=== PATIENT | male | born 1965 | race Caucasian/White ===

== ENCOUNTER 2020-04-22 10:07 | Day surgery (SDC) | payer OTHER ==
[~2020-04-22 10:07] MED LIST: DIPRIVAN 200 MG/20 ML IV ONE; Ketamine HCl 50 MG/ML ONE; Versed 2 MG/2 ML Injection ONE
[2020-04-22] MEDS ORDERED: Sodium Chloride 0.9(Preservative Free) 10 ML IJ ONE (10:08)
[2020-04-22] MEDS ORDERED: Xylocaine 1% Vial 30 ML PF IJ ONE (10:08)
[2020-04-22] MEDS ORDERED: Lactated Ringers 1,000 ML IV ONE (10:08)
[2020-04-22] MEDS ORDERED: Depo-Medrol 40 MG/ML IM ONE (10:08)
--- NOTE | 2020-04-22 13:14 | XRAY ---
Indication: Lumbar BARBARA. Intraoperative fluoroscopy was provided for 18 seconds. 2 digital spot images submitted for interpretation demonstrates midline posterior needle tip just posterior to the lumbosacral interspace. Correlate with intraoperative findings/report.
--- NOTE | 2020-04-22 13:26 | XRAY ---
18 seconds fluoroscopy time in surgery for lumbar BARBARA.
== END 2020-04-22 12:08 | disposition home or self-care (01) ==
LOC: SDC-PAIN 10:07
PROVIDERS: ATTEND Psychiatry & Neurology Pain Medicine
DX: M54.16 Radiculopathy, lumbar region (principal); I10 Essential (primary) hypertension; J44.9 Chronic obstructive pulmonary disease, unspecified; M10.9 Gout, unspecified; Z79.899 Other long term (current) drug therapy
CPT/HCPCS: 62321; 72100; 77003; J1030; J2001; J2250; J2704; Q9966

== ENCOUNTER 2020-07-08 14:46 | Day surgery (SDC) | payer OTHER ==
[2020-07-08] MEDS ORDERED: LIDOCAINE HCL 2% 100 MG/5 ML IJ ONE (14:47)
[2020-07-08] MEDS ORDERED: Depo-Medrol 40 MG/ML IM ONE (14:47)
[2020-07-08] MEDS ORDERED: Lactated Ringers 1,000 ML IV ONE (16:07)
[2020-07-08] MEDS ORDERED: DIPRIVAN 200 MG/20 ML IV ONE (16:47)
[2020-07-08] MEDS ORDERED: Ketamine HCl 50 MG/ML ONE (16:47)
--- NOTE | 2020-07-08 17:40 | XRAY ---
Indication: Bilateral L4-S1 MBB. Intraoperative fluoroscopy provided for 18 seconds. Single digital spot image submitted for interpretation demonstrates posterior needle tips projecting over the expected left and right L4-S1 nerve roots. Correlate with intraoperative findings/report.
--- NOTE | 2020-07-08 17:45 | XRAY ---
18 seconds fluoroscopy time in surgery for bilateral L4-S1 MBB.
== END 2020-07-08 17:20 | disposition home or self-care (01) ==
LOC: SDC-PAIN 14:46
PROVIDERS: ATTEND Psychiatry & Neurology Pain Medicine
DX: M47.816 Spondylosis without myelopathy or radiculopathy, lumbar region (principal); I10 Essential (primary) hypertension; J44.9 Chronic obstructive pulmonary disease, unspecified; M10.9 Gout, unspecified; Z79.899 Other long term (current) drug therapy
CPT/HCPCS: 64493; 64494; 72020; 77002; J1030; J2704

== ENCOUNTER 2021-01-06 14:18 | Day surgery (SDC) | payer OTHER ==
[2021-01-06] MEDS ORDERED: Depo-Medrol 40 MG/ML IM ONE ×2 (14:19)
[2021-01-06] MEDS ORDERED: LIDOCAINE HCL 2% 100 MG/5 ML IJ ONE (14:19)
[2021-01-06] MEDS ORDERED: BUPIVACAINE 0.5% VIAL IJ ONE (14:19)
[2021-01-06] MEDS ORDERED: Lactated Ringers 1,000 ML IV ONE (16:06)
[2021-01-06] MEDS ORDERED: DIPRIVAN 200 MG/20 ML IV ONE (16:16)
--- NOTE | 2021-01-06 16:55 | XRAY ---
Indication: Bilateral L4-S1 MBB. Intraoperative fluoroscopy provided for 8 seconds. Single digital spot image submitted for interpretation demonstrate posterior needle tips projecting over the expected left and right L4-S1 nerve roots. Correlate with intraoperative findings/report.
--- NOTE | 2021-01-06 17:04 | XRAY ---
8 seconds of fluoroscopy was used in surgery for a bilateral L4-L5, L5-S1 MBB.
== END 2021-01-06 16:38 | disposition home or self-care (01) ==
LOC: SDC-PAIN 14:18
PROVIDERS: ATTEND Psychiatry & Neurology Pain Medicine
DX: M47.816 Spondylosis without myelopathy or radiculopathy, lumbar region (principal); J44.9 Chronic obstructive pulmonary disease, unspecified; I10 Essential (primary) hypertension; K46.9 Unspecified abdominal hernia without obstruction or gangrene; M10.9 Gout, unspecified; Z79.899 Other long term (current) drug therapy
CPT/HCPCS: 64493; 64494; 72020; 77002; J1030; J2704

== ENCOUNTER 2021-03-24 10:35 | Day surgery (SDC) | payer OTHER ==
[2021-03-24] MEDS ORDERED: Xylocaine 1% Vial 30 ML PF IJ ONE (10:36)
[2021-03-24] MEDS ORDERED: Depo-Medrol 40 MG/ML IM ONE (10:36)
[2021-03-24] MEDS ORDERED: BUPIVACAINE 0.5% VIAL IJ ONE (10:36)
[2021-03-24] MEDS ORDERED: Lactated Ringers 1,000 ML IV ONE (12:29)
[2021-03-24] MEDS ORDERED: Ketamine HCl 50 MG/ML ONE (12:59)
[2021-03-24] MEDS ORDERED: DIPRIVAN 200 MG/20 ML IV ONE (12:59)
--- NOTE | 2021-03-24 15:21 | XRAY ---
Indication: Right L4-S1 RFA. Intraoperative fluoroscopy provided for 32 seconds. 3 digital spot image submitted for interpretation demonstrates posterior needle tips projecting over the expected right L4-S1 nerve roots. Correlate with intraoperative findings/report.
--- NOTE | 2021-03-24 16:42 | XRAY ---
32 seconds of fluoroscopy was used in surgery for a right L4-S1 RFA.
== END 2021-03-24 13:55 | disposition home or self-care (01) ==
LOC: SDC-PAIN 10:35
PROVIDERS: ATTEND Psychiatry & Neurology Pain Medicine
DX: M47.816 Spondylosis without myelopathy or radiculopathy, lumbar region (principal); Z79.899 Other long term (current) drug therapy
CPT/HCPCS: 64635; 64636; 72100; 77002; J1030; J2001; J2704

== ENCOUNTER 2021-05-05 13:44 | Day surgery (SDC) | payer OTHER ==
[2021-05-05] MEDS ORDERED: Depo-Medrol 40 MG/ML IM ONE (13:45)
[2021-05-05] MEDS ORDERED: BUPIVACAINE 0.5% VIAL IJ ONE (13:45)
[2021-05-05] MEDS ORDERED: Xylocaine 1% Vial 30 ML PF IJ ONE (13:45)
[2021-05-05] MEDS ORDERED: DIPRIVAN 200 MG/20 ML IV ONE (16:38)
[2021-05-05] MEDS ORDERED: Lactated Ringers 1,000 ML IV ONE (18:20)
--- NOTE | 2021-05-05 21:13 | XRAY ---
Indication: Left L4-S1 RFA. Intraoperative fluoroscopy provided for 35 seconds. 4 digital spot image submitted for interpretation demonstrates posterior needle tips projecting over the expected left L4-S1 nerve roots. Correlate with intraoperative findings/report.
--- NOTE | 2021-05-06 09:00 | XRAY ---
35 seconds fluoroscopy time in surgery for left L4-S1 RFA.
== END 2021-05-05 17:10 | disposition home or self-care (01) ==
LOC: SDC-PAIN 13:44
PROVIDERS: ATTEND Psychiatry & Neurology Pain Medicine
DX: M47.816 Spondylosis without myelopathy or radiculopathy, lumbar region (principal); Z79.899 Other long term (current) drug therapy
CPT/HCPCS: 64635; 64636; 72100; 77002; J1030; J2001; J2704

== ENCOUNTER 2022-03-30 15:22 | Day surgery (SDC) | payer BC ==
[2022-03-30] MEDS ORDERED: Depo-Medrol 40 MG/ML IM ONE (15:23)
[2022-03-30] MEDS ORDERED: BUPIVACAINE 0.5% VIAL IJ ONE (15:23)
[2022-03-30] MEDS ORDERED: Lactated Ringers 1,000 ML IV ONE (17:33)
--- NOTE | 2022-03-30 18:48 | XRAY ---
Indication: Left shoulder and left subacromial bursa injection. Intraoperative fluoroscopy provided for 54 seconds. 2 digital spot image submitted for interpretation demonstrates needle tip projecting over the left glenohumeral joint superiorly. Second needle tip subacromial. Small amount of contrast injected for both needle tip placement. Correlate with intraoperative findings/report.
--- NOTE | 2022-03-31 09:36 | XRAY ---
54 seconds of fluoroscopy was used in surgery for a left shoulder intra-articular injection and a subacromial injection.
== END 2022-03-30 17:50 | disposition home or self-care (01) ==
LOC: SDC-PAIN 15:22
PROVIDERS: ATTEND Psychiatry & Neurology Pain Medicine
DX: M19.012 Primary osteoarthritis, left shoulder (principal); M75.52 Bursitis of left shoulder; Z79.899 Other long term (current) drug therapy
CPT/HCPCS: 20610; 73030; 77002; J1030; J2704; Q9966

== ENCOUNTER 2024-03-27 08:00 | Day surgery (SDC) | payer BC ==
[2024-03-27] MEDS ORDERED: Depo-Medrol 40 MG/ML IM ONE (08:01)
[2024-03-27] MEDS ORDERED: LIDOCAINE HCL 1% 50 MG/5 ML VL PF IJ ONE (08:01)
[2024-03-27] MEDS ORDERED: BUPIVACAINE 0.5% VIAL IJ ONE (08:01)
[2024-03-27] MEDS ORDERED: Lactated Ringers 1,000 ML IV ONE (09:52)
--- NOTE | 2024-03-27 11:39 | XRAY ---
Indication: Right L4-S1 RFA. Intraoperative fluoroscopy provided 28 seconds. 4 digital spot image submitted for interpretation demonstrates posterior needle tips projecting over the expected right L4-S1 nerve roots. Correlate with intraoperative findings/report.
--- NOTE | 2024-03-27 13:09 | XRAY ---
28 seconds of fluoroscopy was used in surgery for a right L4-S1 RFA.
== END 2024-03-27 10:15 | disposition home or self-care (01) ==
LOC: SDC-PAIN 08:00
PROVIDERS: ATTEND Psychiatry & Neurology Pain Medicine
DX: M47.816 Spondylosis without myelopathy or radiculopathy, lumbar region (principal)
CPT/HCPCS: 64635; 64636; 72100; 77002; J2001

== ENCOUNTER 2024-04-03 07:56 | Day surgery (SDC) | payer BC ==
[2024-04-03] MEDS ORDERED: LIDOCAINE HCL 1% 50 MG/5 ML VL PF IJ ONE (07:57)
[2024-04-03] MEDS ORDERED: BUPIVACAINE 0.5% VIAL IJ ONE (07:57)
[2024-04-03] MEDS ORDERED: Depo-Medrol 40 MG/ML IM ONE (07:57)
[2024-04-03] MEDS ORDERED: Pepcid 20 MG VIAL IV ONE ×2 (08:56→09:02)
[2024-04-03] MEDS ORDERED: Reglan 10 MG/2 ML ONE ×2 (08:56)
[2024-04-03] MEDS ORDERED: ROBINUL ONE (08:56)
[2024-04-03] MEDS ORDERED: DIPRIVAN 200 MG/20 ML IV ONE (09:33)
[2024-04-03] MEDS ORDERED: Lactated Ringers 1,000 ML IV ONE (09:38)
--- NOTE | 2024-04-03 12:01 | XRAY ---
Indication: Left L4-S1 RFA. Intraoperative fluoroscopy provided for 19 seconds. 4 digital spot images submitted for interpretation demonstrates posterior needle tips projecting over expected left L4-S1 nerve roots. Correlate with intraoperative findings/report.
--- NOTE | 2024-04-03 12:05 | XRAY ---
19 seconds of fluoroscopy was used in surgery for a left L4-S1 RFA.
== END 2024-04-03 10:05 ==
LOC: SDC-PAIN 07:56
PROVIDERS: ATTEND Psychiatry & Neurology Pain Medicine
DX: M47.816 Spondylosis without myelopathy or radiculopathy, lumbar region (principal)
CPT/HCPCS: 64635; 64636; 72100; 77002; J2001; J2704